=== PATIENT | female | born 1955 | race Caucasian/White ===

== ENCOUNTER 2016-12-08 06:59 | Inpatient (IN) | payer MEDICAID ==
[2016-12-05 14:02] VITALS: BP 119/78
[2016-12-05 14:42] LABS: PATH.CAST-FLAG NOT PRESENT; SPERM-FLAG NOT PRESENT; SRC-FLAG NOT PRESENT; XTAL-FLAG NOT PRESENT; YLC-FLAG NOT PRESENT
[2016-12-05 14:44] LABS: BLOOD UREA NITROGEN 10 mg/dL (7-18)
[2016-12-05 14:48] LABS: ASPARTATE AMINO TRANSFERASE 12 U/L (15-37)
[2016-12-05 14:59] LABS: HEMATOCRIT 44.7 % (34.6-47.8); HEMOGLOBIN 14.8 g/dL (11.7-16.4); WHITE BLOOD COUNT 12.3 x10^3/uL (3.4-10)
[2016-12-07 14:31] LABS: HEMATOCRIT 44.5 % (34.6-47.8); HEMOGLOBIN 14.5 g/dL (11.7-16.4); WHITE BLOOD COUNT 10.9 x10^3/uL (3.4-10)
[~2016-12-08] VITALS: Ht 162.6 cm; Wt 79.0 kg
[~2016-12-08 06:59] MED LIST: ALPR-475 PO; ALPR0.5T6 PO; BACITRACIN 50,000 UNIT ONE; BUPIVACAINE/PF 0.5% ONE; EPINEPHRINE 1 MG/ML, 1ML ONE; FLUO10TA PO; GLIP5TAB10 PO; LOVA20TA2 PO; METF10002 PO; METF500T4 PO; METH5TAB12 PO; MORP30TA PO; OXYC15TA PO; OXYC20TA2 PO; TEMA30CA PO; THROMBIN 5,000 UNIT VIAL TP ONE
[2016-12-08] MEDS ORDERED: LACTATED RINGERS 1,000 ML IV SCH (08:01)
[2016-12-08] MEDS ORDERED: ASPI-621 PO (08:04)
[2016-12-08] MEDS ORDERED: OMEG1CAP24 PO (08:04)
[2016-12-08] MEDS ORDERED: LIDOCAINE 1%, 2ML ONE (08:09)
[2016-12-08] MEDS ORDERED: LIDOCAINE 1%, 2ML SQ PRN (08:30)
[2016-12-08] MEDS ORDERED: LIDO5JEL9 TD (08:34)
[2016-12-08] MEDS ORDERED: MIDAZOLAM 1 MG/ML, 2ML ONE (09:02)
[2016-12-08] MEDS ORDERED: FENTANYL PF 100 MCG/2ML ONE ×3 (09:02→11:28)
[2016-12-08] MEDS ORDERED: SUFentanil 50 MCG/ML, 1ML ONE (09:02)
[2016-12-08] MEDS ORDERED: DEXAMETHASONE 4 MG/ML, 5ML ONE (09:56)
[2016-12-08] MEDS ORDERED: CEFAZOLIN 1,000 MG ONE (09:56)
[2016-12-08] MEDS ORDERED: SUCCINYLCHOLINE 20 MG/ML, 10ML ONE (09:56)
[2016-12-08] MEDS ORDERED: PROPOFOL 10 MG/ML, 20ML ONE ×2 (09:56)
[2016-12-08] MEDS ORDERED: PROMETHAZINE 25 MG/ML, 1ML IV PRN (11:00)
[2016-12-08] MEDS ORDERED: OXYcodone 5 MG/5 ML ORAL.SOL UDC PO PRN (11:00)
[2016-12-08] MEDS ORDERED: hydrALAzine 20 MG/ML, 1ML IV PRN (11:00)
[2016-12-08] MEDS ORDERED: MIDAZOLAM 1 MG/ML, 2ML IV PRN (11:00)
[2016-12-08] MEDS ORDERED: ALBUTEROL SULFATE 2.5 MG/3 ML NPPB PRN (11:00)
[2016-12-08] MEDS ORDERED: METOPROLOL 1 MG/ML, 5ML IV PRN (11:00)
[2016-12-08] MEDS ORDERED: MEPERIDINE/PF 25MG/0.5ML IVPush PRN (11:00)
[2016-12-08] MEDS ORDERED: ACETAMINOPHEN 325 MG TABLET PO PRN (11:00)
[2016-12-08] MEDS ORDERED: MEPERIDINE/PF 25MG/0.5ML ONE (11:26)
[2016-12-08] MEDS ORDERED: HYDROmorphone 2 MG/ML, 1ML ONE (11:26)
[2016-12-08] MEDS ORDERED: ACETAMINOPHEN 650 MG/20.3 ML UDC ONE (11:27)
[2016-12-08] MEDS ORDERED: OXYcodone 5 MG/5 ML ORAL.SOL UDC ONE (11:28)
[2016-12-08] MEDS ORDERED: BISACODYL 10 MG SUPP PR PRN (11:30)
[2016-12-08] MEDS ORDERED: PROMETHAZINE 25 MG/ML, 1ML IM PRN (11:30)
[2016-12-08] MEDS ORDERED: PHARMACY MAY ADJ FOR RENAL FX MC PRN (11:30)
[2016-12-08] MEDS ORDERED: morphine SULFATE 10 MG/ML, 1ML IVPush PRN (11:30)
[2016-12-08] MEDS ORDERED: INSULIN REGULAR 100 UNITS/ML, 3ML VIAL SQ-INSULIN PRN (11:30)
[2016-12-08] MEDS ORDERED: ONDANSETRON 2MG/ML, 2ML IVPush PRN (11:30)
[2016-12-08] MEDS ORDERED: SENNA/DOCUSATE TABLET PO PRN (11:30)
[2016-12-08] MEDS ORDERED: HYDROcodone/APAP 10/325 MG TABLET PO PRN (11:30)
[2016-12-08] MEDS ORDERED: METHOCARBAMOL 750 MG TABLET PO PRN (11:30)
[2016-12-08] MEDS ORDERED: DIPHENHYDRAMINE 50 MG/ML, 1ML IVPush PRN (11:30)
[2016-12-08] MEDS: HYDROmorphone 1 MG/ML, 1ML IV PRN ×4 (11:32→12:02)
[2016-12-08] MEDS ORDERED: METHOCARBAMOL 750 MG TABLET ONE (11:53)
[2016-12-08] MEDS: FENTANYL PF 100 MCG/2ML IV PRN ×2 (12:12→12:32)
[2016-12-08] MEDS: HYDROmorphone 2MG TABLET PO PRN ×4 (14:39→20:01)
[2016-12-08] MEDS: NS + 20MEQ KCL 1,000 ML IV SCH (14:39)
[2016-12-08] MEDS: CEFAZOLIN PMX 1GM/50ML 50 ML IVPB SCH (17:40)
[2016-12-08 18:56] VITALS: BP 115/67
[2016-12-08] MEDS: SODIUM CHLORIDE FLUSH 10ML SYR IVF SCH (21:00)
[2016-12-08] MEDS ORDERED: TEMAZEPAM 30 MG CAPSULE PO SCH (21:00)
[2016-12-08] MEDS ORDERED: TEMAZEPAM 15 MG CAPSULE ONE (21:19)
[2016-12-08] MEDS: metFORMIN 500 MG TABLET PO SCH (21:27)
[2016-12-09] MEDS: HYDROmorphone 2MG TABLET PO PRN ×3 (00:02→10:58)
[2016-12-09 00:52] VITALS: BP 104/64
[2016-12-09] MEDS: CEFAZOLIN PMX 1GM/50ML 50 ML IVPB SCH (02:10)
[2016-12-09] MEDS: NS + 20MEQ KCL 1,000 ML IV SCH (04:00)
[2016-12-09 04:13] VITALS: BP 96/58
[2016-12-09 06:43] VITALS: BP 114/56
[2016-12-09] MEDS ORDERED: CEPH-368 PO (07:59)
[2016-12-09] MEDS ORDERED: METH750T2 PO (07:59)
[2016-12-09] MEDS: metFORMIN 500 MG TABLET PO SCH (08:39)
[2016-12-09] MEDS: SODIUM CHLORIDE FLUSH 10ML SYR IVF SCH (08:40)
[2016-12-09] MEDS ORDERED: FLUOXETINE 10 MG CAP PO SCH (09:00)
[2016-12-09 10:55] VITALS: BP 117/59
== END 2016-12-09 11:21 | disposition home or self-care (01) | DRG 473 ==
LOC: ORIP 06:59 → EDSTATUS 09:30 → 4NOR 13:03
PROVIDERS: ADMIT Neurological Surgery; ATTEND Neurological Surgery
PROC: 01N10ZZ Release Cervical Nerve, Open Approach (ICD-10-PCS; 2016-12-08)
PROC: 4A11X4G Monitoring of Peripheral Nervous Electrical Activity, Intraoperative, External Approach (ICD-10-PCS; 2016-12-08)
PROC: 0RG10A0 Fusion of Cervical Vertebral Joint with Interbody Fusion Device, Anterior Approach, Anterior Column, Open Approach (ICD-10-PCS; principal; 2016-12-08 09:30)
DX: M50.122 Cervical disc disorder at C5-C6 level with radiculopathy (principal); M48.02 Spinal stenosis, cervical region; E11.9 Type 2 diabetes mellitus without complications; M25.78 Osteophyte, vertebrae; F41.9 Anxiety disorder, unspecified; F17.200 Nicotine dependence, unspecified, uncomplicated; Z88.8 Allergy status to other drugs, medicaments and biological substances
CPT/HCPCS: 36415; 71020; 72040; 72050; 80053; 81001; 82962; 85025; 85610; 85730; 87086; 87106; 93005; C1713; J0171; J0690; J1100; J1170; J1815; J2175; J2250; J2704; J3010; J3480; J3490; C1762; J0330; J7120

== ENCOUNTER 2020-10-17 04:13 | Emergency (ER) | payer MEDICAID ==
[~2020-10-17] VITALS: Ht 162.6 cm; Wt 65.0 kg
[~2020-10-17 04:13] MED LIST changes: -ALPR-475 PO; -ALPR0.5T6 PO; +ALPR0.5T7 PO; +ALPR0.5T93 PO; +ASPI81TA45 PO; -BACITRACIN 50,000 UNIT ONE; -BUPIVACAINE/PF 0.5% ONE; +CEPH-368 PO; -EPINEPHRINE 1 MG/ML, 1ML ONE; +LIDO5JEL9 TD; +METF500T17 PO; -METF500T4 PO; +METH-640 PO; +OMEG1CAP24 PO; -OXYC15TA PO; +OXYC15TA3 PO; -THROMBIN 5,000 UNIT VIAL TP ONE
[2020-10-17 04:17] VITALS: BP 118/74
== END 2020-10-17 04:58 | disposition home or self-care (01) ==
LOC: ED 04:52
DX: S40.869A Insect bite (nonvenomous) of unspecified upper arm, initial encounter (principal); S80.869A Insect bite (nonvenomous), unspecified lower leg, initial encounter; W57.XXXA Bitten or stung by nonvenomous insect and other nonvenomous arthropods, initial encounter; Y93.89 Activity, other specified; Y92.89 Other specified places as the place of occurrence of the external cause; Y99.8 Other external cause status
CPT/HCPCS: 99283

== ENCOUNTER 2020-10-20 04:31 | Emergency (ER) | payer MEDICAID ==
[~2020-10-20] VITALS: Ht 162.6 cm; Wt 67.0 kg
[2020-10-20 04:38] VITALS: BP 132/77
--- NOTE | 2020-10-20 05:20 | NUR ---
Patient given discharge instructions and they have confirmed that they understand the instructions. Patient ambulatory with steady gait. NAD, all questions answered appropriately, denies additional needs at this time. No personal belongings left in room after discharge.
== END 2020-10-20 05:21 | disposition home or self-care (01) ==
LOC: ED 05:00
DX: Z00.00 Encounter for general adult medical examination without abnormal findings (principal); B85.0 Pediculosis due to Pediculus humanus capitis; F17.210 Nicotine dependence, cigarettes, uncomplicated
CPT/HCPCS: 99281; 99406